=== PATIENT | female | born 1965 | race Caucasian/White ===

== ENCOUNTER 2016-06-25 10:28 | Emergency (ER) | payer BC ==
[2016-06-25 10:34] VITALS: BP 155/90; PULSE 104; RESP 20; TEMP 97.9; O2SAT 96
--- NOTE | 2016-06-25 13:45 | RAD ---
Left ankle three views History: Trauma. Comparison: None available. Findings: Prominent lateral and milder medial malleolar soft tissue swelling. Ossific density seen distal to the medial malleolus of the distal tibia suggestive for an avulsion fracture, possibly chronic. Clinical correlation. Narrowing of the tibiotalar joint space. Prominent plantar calcaneal spurring. Impression: Prominent lateral and milder medial malleolar soft tissue swelling. Ossific density seen distal to the medial malleolus of the distal tibia suggestive for an avulsion fracture, possibly chronic. Clinical correlation. Narrowing of the tibiotalar joint space. Prominent plantar calcaneal spurring. If pain persists, consider MRI.
--- NOTE | 2016-06-25 13:52 | RAD ---
Left foot three views History: Trauma. Comparison: None available. Technique: Three views of the left foot were performed. Findings: Moderate hallux valgus deformity with prominent degenerative changes noted at the 1st MTP joint space. Question chronic deformity at the level of the 2nd proximal phalanx. Question mild cortical productive change along the lateral cortex of the bases of the 2nd and 3rd metatarsal bones which do not appear to persist on the oblique images. Ossific density seen distal to the medial malleolus of the tibia which may represent an avulsion fracture. Prominent plantar calcaneal spurring. Narrowing of the tibiotalar joint space. If pain persists, consider MRI. Impression: Moderate hallux valgus deformity with prominent degenerative changes noted at the 1st MTP joint space. Question chronic deformity at the level of the 2nd proximal phalanx. Question mild cortical productive change along the lateral cortex of the bases of the 2nd and 3rd metatarsal bones which do not appear to persist on the oblique images. Ossific density seen distal to the medial malleolus of the tibia which may represent an avulsion fracture. Prominent plantar calcaneal spurring. Narrowing of the tibiotalar joint space. If pain persists, consider MRI.
--- NOTE | 2016-06-25 15:39 | C.PDOC ---
History Of Present Illness 51 year old patient, with a past medical history of hypertension and diabetes, presents to the ED complaining of left ankle pain and swelling. Patient fell and twisted her ankle 3-4 days ago. The pain and swelling became worse which prompted the visit. Patient denies any numbness or weakness. Time Seen by Provider: 06/25/16 11:11 Chief Complaint (Nursing): Trauma History Per: Patient History/Exam Limitations: no limitations Onset/Duration Of Symptoms: Days (3-4) Current Symptoms Are (Timing): Still Present Severity: Moderate Pain Scale Rating Of: 4 Recent travel outside of the [place]: No - Ankle/Foot Description Of Injury: Fell, Twisted Past Medical History Reviewed: Historical Data, Nursing Documentation, Vital Signs Vital Signs: Last Vital Signs Temp 97.9 F 06/25/16 10:33 Pulse 104 H 06/25/16 10:33 Resp 20 06/25/16 10:33 BP 155/90 H 06/25/16 10:33 Pulse Ox 96 06/25/16 20:44 - Medical History PMH: Diabetes, HTN - [facility] Procedures CL FX REDUC-TOE (06/07/14) Family History: States: Unknown Family Hx - Social History Hx Tobacco Use: No Hx Alcohol Use: No Hx Substance Use: No - Immunization History Hx Tetanus Toxoid Vaccination: No Hx Influenza Vaccination: No Hx Pneumococcal Vaccination: No Review Of Systems Except As Marked, All Systems Reviewed And Found Negative. Musculoskeletal: Positive for: Other (left ankle pain and swelling) Skin: Positive for: Bruising (left ankle) Neurological: Negative for: Weakness, Numbness Physical Exam - Physical Exam Appears: Non-toxic, No Acute Distress Skin: Warm, Dry Head: Atraumatic, Normacephalic Eye(s): bilateral: Normal Inspection Oral Mucosa: Moist Extremity: No Calf Tenderness, No Deformity, Other (left ankle: swelling and tenderness to the medial and lateral malleolus; (+)ecchymosis (-)erythema (+) normal pedal pulse (+)<2 seconds capillary refill) Pulses: Left Dorsalis Pedis: Normal, Right Dorsalis Pedis: Normal Neurological/Psych: Oriented x3, Normal Motor, Normal Sensation Gait: Steady ED Course And Treatment O2 Sat by Pulse Oximetry: 96 (RA) Pulse Ox Interpretation: Normal - Other Rad Left Foot X-Rays X-Ray: Viewed By Me, Read By Radiologist Interpretation: Impression: Moderate hallux valgus deformity with prominent degenerative changes noted at the 1st MTP joint space. Question chronic deformity at the level of the 2nd proximal phalanx. Question mild cortical productive change along the lateral cortex of the bases of the 2nd and 3rd metatarsal bones which do not appear to persist on the oblique images. Ossific density seen distal to the medial malleolus of the tibia which may represent an avulsion fracture. Prominent plantar calcaneal spurring. Narrowing of the tibiotalar joint space. Left Ankle X-Rays X-Ray: Viewed By Me, Read By Radiologist Interpretation: Impression: Prominent lateral and milder medial malleolar soft tissue swelling. Ossific density seen distal to the medial malleolus of the distal tibia suggestive for an avulsion fracture, possibly chronic. Clinical correlation. Narrowing of the tibiotalar joint space. Prominent plantar calcaneal spurring. Progress Note: Left ankle and left foot x-rays ordered. X-ray results reviewed. X-ray shows a positive avulsion fracture to the distal tip of the tibia. PROCEDURE: Splint Application. Applied by ED Lease Analyst. Checked by SANDRA Cabrera. Procedure: The area of the splint was appropriately positioned. A posterior U splint was applied. Post-procedure: Good position. Neurovascular status remains intact. Patient tolerated the procedure well with no immediate complications. Crutches provided with instructions given by PT in the ER. On reassessment, patient is resting comfortably, and is in no acute distress. Patient instructed to follow up with ortho/PMD within 1-2 days. Disposition - Disposition Referrals: Dianelys Dasilva MD [Staff Provider] - Disposition: HOME/ ROUTINE Disposition Time: 12:00 Condition: GOOD Additional Instructions: Follow up with the Orthopedist within 1-2 days. Return if worsened. 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 - Scribe Statement The provider has reviewed the documentation as recorded by the Scribe Linda Lora Provider Scribe Attestation: All medical record entries made by the Scribe were at my direction and personally dictated by me. I have reviewed the chart and agree that the record accurately reflects my personal performance of the history, physical exam, medical decision making, and the department course for this patient. I have also personally directed, reviewed, and agree with the discharge instructions and disposition.
== END 2016-06-25 13:11 | disposition home or self-care (01) ==
LOC: C.ER 10:28
DX: S82.892A Other fracture of left lower leg, initial encounter for closed fracture (principal); W18.30XA Fall on same level, unspecified, initial encounter
CPT/HCPCS: 29515; 73610; 73630; 97116; 97161; 99285; G8978; G8979; G8980